=== PATIENT | female | born 1985 | race Caucasian/White ===

== ENCOUNTER → 2018-06-03 | Outpatient (CLI) | payer OTHER ==
[~2018-06-03] MED LIST: AMOX500 PO; HYDACE5 PO; LEVFLO500 PO; NORFLEX PO; OTC SINUS MEDICATION; Percocet 5-3251 EACH PO; Protonix40 MG PO
[2018-06-07 15:07] LABS: HPV 16 Negative (Negative); HPV 18 Negative (Negative); HPV OTHER HR TYPES Positive (Negative)
== END | disposition home or self-care (01) ==
LOC: LAB 18:01 → LAB SHORT 18:01
PROVIDERS: Nurse Practitioner Women's Health
DX: Z12.4 Encounter for screening for malignant neoplasm of cervix (principal); Z91.89 Other specified personal risk factors, not elsewhere classified
CPT/HCPCS: 87624; 87625; G0123